=== PATIENT | female | born 1960 | race Hispanic/Latino ===

== ENCOUNTER 2017-11-06 08:20 | Outpatient (CLI) | payer MEDICARE | END 2017-11-06 08:21 | disposition home or self-care (01) | LOC: BICRAD 08:20 | PROVIDERS: ATTEND Internal Medicine Rheumatology | DX: M79.672 Pain in left foot (principal); M25.775 Osteophyte, left foot; M77.32 Calcaneal spur, left foot ==

== ENCOUNTER 2020-06-19 13:19 | Outpatient (CLI) | payer MEDICARE ==
--- NOTE | 2020-06-19 14:25 | BD ---
EXAM: Bone densitometry using DEXA HISTORY: 59 yo female. Screening for postmenopausal osteoporosis FINDINGS: L1--bone mineral density 1.104 g/sq cm; T score 1.0 ; Z score 2.2 L2--bone mineral density 1.228 g/sq cm; T score 1.8 ; Z score 3.1 L3--bone mineral density 1.350 g/sq cm; T score 2.4 ; Z score 2.8 L4--bone mineral density 1.527 g/sq cm; T score 4.2 ; Z score 5.6 Total L1-L4--bone mineral density 1.310 g/sq cm; T score 2.4 ; Z score 3.7 Left femoral neck--bone mineral density0.981; T score 1.2 ; Z score 2.1 Total proximal left femur--bone mineral density 1.309; T score 2.0 ; Z score 3.5 The 10 year fracture risk for a major osteoporotic fracture is 5.7% and for a hip fracture is <0.1%. IMPRESSION: Normal BMD
== END 2020-06-19 13:20 | disposition home or self-care (01) ==
LOC: BICMAMMO 13:19
PROVIDERS: ATTEND Internal Medicine Rheumatology
DX: M81.0 Age-related osteoporosis without current pathological fracture (principal)
CPT/HCPCS: 77080

== ENCOUNTER 2020-07-02 10:05 | Outpatient (CLI) | payer MEDICARE ==
--- NOTE | 2020-07-02 10:38 | RAD ---
XR Cervical Sp Com W/Obl Fl/Ex History: Spondylosis without myelopathy or radiculopathy Comparison: None. Findings: Advanced degenerative disc space disease at C5/C6 and C6/C7 with disc osteophyte complexes. 2 mm C5/C6 retrolisthesis. Multiple bridging anterior osteophytes. No significant translation with flexion or extension. Open-mouth odontoid view is normal. Osseous neural foraminal narrowing on the left at C5/C6 and C6/C7. Osseous neural foraminal narrowing on the right at C5/C6 and C6/C7. Impression: Moderate spondylosis as described without abnormal translation with flexion or extension.
== END 2020-07-02 10:06 | disposition home or self-care (01) ==
LOC: BICRAD 10:05
PROVIDERS: ATTEND Internal Medicine Rheumatology
DX: M47.812 Spondylosis without myelopathy or radiculopathy, cervical region (principal); M05.79 Rheumatoid arthritis with rheumatoid factor of multiple sites without organ or systems involvement; R20.0 Anesthesia of skin
CPT/HCPCS: 72052

== ENCOUNTER 2020-09-13 09:05 | Outpatient (CLI) | payer MEDICARE, MEDICAID | END 2020-09-13 09:06 | disposition home or self-care (01) | LOC: BICMRI 09:05 | PROVIDERS: ATTEND Internal Medicine Rheumatology | DX: M05.79 Rheumatoid arthritis with rheumatoid factor of multiple sites without organ or systems involvement (principal); M47.812 Spondylosis without myelopathy or radiculopathy, cervical region; M48.02 Spinal stenosis, cervical region; M25.80 Other specified joint disorders, unspecified joint | CPT/HCPCS: 72141 ==

== ENCOUNTER 2020-11-21 17:45 | Emergency (ER) | payer OTHER, MEDICARE, MEDICAID | END 2020-11-21 19:50 | disposition home or self-care (01) | LOC: ERS 17:45 | DX: S50.02XA Contusion of left elbow, initial encounter (principal); M54.2 Cervicalgia; I10 Essential (primary) hypertension; Z87.891 Personal history of nicotine dependence; V89.2XXA Person injured in unspecified motor-vehicle accident, traffic, initial encounter ==

== ENCOUNTER 2022-03-18 12:35 | Outpatient (CLI) | payer MEDICARE, MEDICAID | END 2022-03-18 12:36 | disposition home or self-care (01) | LOC: BICMAMMO 12:35 | PROVIDERS: ATTEND Family Medicine | DX: Z12.31 Encounter for screening mammogram for malignant neoplasm of breast (principal); Z80.3 Family history of malignant neoplasm of breast | CPT/HCPCS: 77063; 77067 ==

== ENCOUNTER 2024-03-11 09:08 | Outpatient (CLI) | payer MEDICARE, MEDICAID | END 2024-03-11 09:09 | disposition home or self-care (01) | LOC: BICMAMMO 09:08 | PROVIDERS: ATTEND Internal Medicine Rheumatology | DX: M81.0 Age-related osteoporosis without current pathological fracture (principal) | CPT/HCPCS: 77080 ==

== ENCOUNTER 2024-05-09 09:02 | Outpatient (CLI) | payer MEDICARE, MEDICAID ==
[2024-05-09 09:48] LABS: #Basophils Less than 0.03 10x3/uL (0.0-0.2); %Basophils 0.4 % (0.0-1.0); %Eosinophils 4.6 % (0.0-10.0); %Lymphocytes 22.4 % (21.0-51.0); %Monocytes 6.8 % (0.0-10.0); %Neutrophils 65.6 % (42.0-75.0); Hematocrit 39.9 % (36.0-47.0); Hemoglobin 13.6 g/dL (12.0-16.0); Mean Corpuscular HGB CONC 34.1 g/dL (32.0-36.0); Mean Corpuscular Hemoglobin 30.1 pg (27.0-31.0); Mean Corpuscular Volume 88.3 fL (78.0-98.0); Mean Platelet Volume 10.6 fL (7.4-10.4); Platelet Count 208 10x3/uL (130-400); RBC Distribution Width 13.1 % (11.5-14.5); Red Blood Cell (RBC) Count 4.52 mill/uL (4.20-5.40)
[2024-05-09 10:17] LABS: ALT (SGPT) 22 U/L (8-55); AST (SGOT) 15 U/L (5-34); Albumin 3.7 g/dL (3.4-4.8); Alkaline Phosphatase 65 U/L (40-110); Anion Gap 14 mmol/L (10-20); BUN (Urea Nitrogen) 19 mg/dL (9.8-20.1); Bilirubin, Total 0.6 mg/dL (0.2-1.2); Calc. Creatinine Clearance 0 mL/min (70-130); Calcium 9.5 mg/dL (7.8-10.44); Carbon Dioxide 23 mmol/L (23-31); Chloride 108 mmol/L (98-107); Estimated GFR 77; Globulin 3.3 g/dL (2.4-3.5); Glucose 164 mg/dL (80-115); Potassium 3.6 mmol/L (3.5-5.1); Sodium 141 mmol/L (136-145)
== END 2024-05-09 09:03 | disposition home or self-care (01) ==
LOC: LABBT 09:02
PROVIDERS: ATTEND Internal Medicine Cardiovascular Disease
DX: Z01.812 Encounter for preprocedural laboratory examination (principal); R07.9 Chest pain, unspecified
CPT/HCPCS: 80053; 85025

== ENCOUNTER 2025-05-31 07:58 | Outpatient (CLI) | payer MEDICARE | END 2025-05-31 07:59 | disposition home or self-care (01) | LOC: NM 07:58 | PROVIDERS: ATTEND Psychiatry & Neurology Neurology | DX: R25.1 Tremor, unspecified (principal); R26.89 Other abnormalities of gait and mobility | CPT/HCPCS: 78803; A9584 ==